=== PATIENT | male | born 1965 | race Caucasian/White ===

== ENCOUNTER 2024-08-28 18:24 | Observation (INO) ==
--- NOTE | 2024-08-28 18:55 | Emergency Department Note ---
Impression & Plan Right-sided chest pain, RUSS (dyspnea on exertion) ED Provider Note NAME: ADRIANNE MAYA AGE: 58 SEX: M : 1965 ARRIVES VIA: Walk-In INFORMANT: [Patient] ED PROVIDER(S): [Toi Sellers MD] CHIEF COMPLAINT: Chest pain HISTORY OF PRESENT ILLNESS: The patient is a 58-year-old male who has had just over a month of right chest discomfort that wraps to his shoulder blade. The pain seems to be present more so when he is standing longer. Its better when he is sitting. He does think it may worsen a bit with exertion. He does feel some shortness of breath with exertion. There has been no sweating or nausea. No cough or congestion. The pain is not pleuritic. The patient did have an outpatient chest x-ray which was essentially unrevealing. This was done through his doctors office. He also had an outpatient ultrasound of his right upper quadrant which by report was unremarkable. The patient does not smoke, he does have a family history of heart disease. He has never had a stress test. PMHx/PSHx/Social Hx: See Below PHYSICAL EXAM: GENERAL: Patient is in no acute distress. HEENT: No acute trauma, normocephalic atraumatic, mucous membranes moist, no nasal congestion. NECK: No stridor, no adenopathy, no meningismus, trachea is midline. LUNGS: Clear to auscultation bilaterally, no wheeze, no rhonchi, breath sounds equal. Chest: Nontender chest wall. HEART: Without murmurs gallops or rubs, regular rate and rhythm. ABDOMEN: Soft, nontender, no peritonitis. EXTREMITIES: No cyanosis, full range of motion of all the joints without pain or difficulty. NEUROLOGIC: Oriented x 3, no acute motor or sensory deficits, no focal weakness. SKIN: No jaundice, no diaphoresis. DIFFERENTIAL DIAGNOSIS: Musculoskeletal pain, pneumothorax, malignancy, OK, angina, PE, among others. EMERGENCY DEPARTMENT PROCEDURES: MEDICAL DECISION MAKING: There is no leukocytosis or concerning anemia. There is a normal platelet count. No coagulopathy. No renal failure or significant electrolyte abnormality. No concerning liver enzyme elevation. No evidence for pancreatitis. ECG shows a normal sinus rhythm, no ischemia. Cardiac enzyme testing x 1 is not consistent with acute cardiac injury. Chest x-ray does not show mediastinal widening, pneumonia or pneumothorax. Chest CT does not show PE, there is no mass or lung pathology by CT imaging. On exam, the patient was not having chest pain, I could not reproduce his chest pain with palpation. The patient was given oral aspirin for cardioprotective purposes. The patient presents with chest discomfort that has been ongoing for a month. It is right sided. He does describe some exertional component to the pain. He does have some dyspnea on exertion. I spoke with cardiology. The patient is going to be hospitalized for troponin trending and hopefully a stress test in the morning. The patient was happy with the testing done so far, he is agreeable to hospitalization. I spoke with case management, the on-call hospitalist was consulted. Prior/Outside records/notes reviewed: None ECG per my interpretation: Indication was chest pain. The ECG shows a normal sinus rhythm with a rate of 64. There is no acute ST elevation, there are no PVCs. The QTc is 425. Continuous Cardiac Monitoring per my interpretation: An order was placed for continuous cardiac monitoring. The monitor shows a rate of 70 with normal sinus rhythm. Imaging/x-ray results per my interpretation: Chest x-ray does not show mediastinal widening, pneumonia or pneumothorax. Chronic Medical/Social conditions affecting care: None Care/Management discussed with: Cardiology-Dr. Townsend. Case management and the on-call hospitalist. Level of care consideration(s): After review of the information above and other included data: --I believe the patient requires escalation of care to admission DISPOSITION: Admission Past Med/Surg History Problem List (Updated 08/29/24 @ 00:20 by Toi Sellers MD) RUSS (dyspnea on exertion) (Acute) Right-sided chest pain (Acute) Benign localized prostatic hyperplasia with lower urinary tract symptoms (LUTS) Spermatocele Erectile dysfunction Kidney stones High cholesterol Hypertension Medical History (Updated 08/29/24 @ 00:20 by Toi Sellers MD) Right shoulder injury Right knee meniscal tear Family History Father Diabetes Hypertension Kidney stones Mother Diabetes Hypertension Heart disease Grandmother (Paternal) Cancer Grandfather (Maternal) Heart disease Grandmother (Maternal) Heart disease Aunt No problems noted. 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 Feels Safe at Home: Yes Allergies Allergies Allergy/AdvReac Type Severity Reaction Status Date / Time No Known Allergies Allergy Verified 09/21/23 09:31 Home Meds Home Medications Medication Instructions Recorded Confirmed aspirin 81 mg tablet,delayed 81 mg PO DAILY 06/25/20 09/21/23 release (Adult Low Dose Aspirin) atorvastatin 10 mg tablet 10 mg PO DAILY 06/25/20 09/21/23 carvedilol 12.5 mg tablet 12.5 mg PO BID 06/25/20 09/21/23 cholecalciferol (vitamin D3) 50 50 mcg PO DAILY 06/25/20 09/21/23 mcg (2,000 unit) capsule hydrochlorothiazide 25 mg tablet 25 mg PO Q OTHER DAY 06/25/20 09/21/23 losartan 100 mg tablet 100 mg PO DAILY 06/25/20 09/21/23 multivitamin 1 tab PO DAILY 06/25/20 09/21/23 Results & Data (ED) Vital Signs Vital Signs - 24 hr 08/28/24 18:28 08/28/24 18:39 08/28/24 18:40 Temperature 36.7 C Temperature Source Temporal Artery Scan Pulse Rate 71 69 Pulse Rate [Right Finger] 68 Pulse Rhythm Regular Pulse Rhythm [Right Finger] Regular Pulse Strength Normal Pulse Strength [Right Finger] Normal Respiratory Rate 18 16 Respiratory Effort / Characteristics Non-Labored Spontaneous Non-Labored Respiratory Depth Normal Normal Respiratory Pattern Regular Blood Pressure 170/93 H Blood Pressure [Right Arm] 159/105 H Blood Pressure Mean 118 Blood Pressure Mean [Right Arm] 123 Blood Pressure Position Sitting Blood Pressure Position [Right Arm] Lying Pulse Oximetry 98 100 Oxygen Delivery Method Room Air Room Air Sepsis Recent Fever Within 48 Hours No Sepsis New/Unexplained Change in Mental Status No Sepsis Action Taken by Nursing No Action Required 08/28/24 18:40 08/28/24 19:25 08/28/24 21:29 Temperature Temperature Source Pulse Rate 70 Pulse Rate [Right Finger] 68 64 Pulse Rhythm Regular Pulse Rhythm [Right Finger] Regular Regular Pulse Strength Pulse Strength [Right Finger] Normal Normal Respiratory Rate 15 16 20 Respiratory Effort / Characteristics Non-Labored Non-Labored Respiratory Depth Normal Normal Respiratory Pattern Regular Regular Blood Pressure Blood Pressure [Right Arm] 132/79 154/87 H Blood Pressure Mean Blood Pressure Mean [Right Arm] 96 109 Blood Pressure Position Blood Pressure Position [Right Arm] Lying Lying Pulse Oximetry 100 97 15 L Oxygen Delivery Method Room Air Room Air Room Air Sepsis Recent Fever Within 48 Hours Sepsis New/Unexplained Change in Mental Status Sepsis Action Taken by Nursing 08/28/24 22:33 Temperature Temperature Source Pulse Rate 65 Pulse Rate [Right Finger] Pulse Rhythm Pulse Rhythm [Right Finger] Pulse Strength Pulse Strength [Right Finger] Respiratory Rate Respiratory Effort / Characteristics Respiratory Depth Respiratory Pattern Blood Pressure Blood Pressure [Right Arm] Blood Pressure Mean Blood Pressure Mean [Right Arm] Blood Pressure Position Blood Pressure Position [Right Arm] Pulse Oximetry Oxygen Delivery Method Sepsis Recent Fever Within 48 Hours Sepsis New/Unexplained Change in Mental Status Sepsis Action Taken by Group Home Medications Current Medication List: was personally reviewed by me Laboratory Data Attestation: I reviewed the patient's lab results. 08/28/24 18:45 08/28/24 18:45 Lab Results 08/28/24 Range/Units 18:45 WBC 6.41 (4.8-10.8) K/ul RBC 4.84 (4.70-6.10) M/uL Hgb 14.0 (14.0-18.0) g/dl Hct 39.7 L (42.0-52.0) % MCV 82.0 (80.0-100.0) fL MCH 28.9 (25.0-34.0) pg MCHC 35.3 (32.0-36.0) g/dL RDW Std Deviation 37.2 (36.4-46.3) fL RDW Coeff of Romulo 12.4 (11.5-14.5) % Plt Count 324 (130-400) K/uL MPV 9.1 L (9.4-12.4) fL Immature Gran % (Auto) 0.5 % Neut % (Auto) 52.5 % Lymph % (Auto) 29.8 % Ogle % (Auto) 13.9 % Eos % (Auto) 2.2 % Baso % (Auto) 1.1 % Neut # (Auto) 3.37 (1.40-6.50) K/uL Lymph # (Auto) 1.91 (1.20-3.40) K/uL [place]gle # (Auto) 0.89 H (0.11-0.59) K/uL Eos # (Auto) 0.14 (0.00-0.50) K/uL Baso # (Auto) 0.07 (0.00-0.20) K/uL Immature Gran # (Auto) 0.03 (0.01-0.20) K/uL PT 11.1 (9.0-12.0) Seconds INR 1.0 (0.9-1.1) APTT 29 (21-31) Seconds PTT Ratio 1.1 Sodium 137 (136-145) mmol/L Potassium 4.0 (3.5-5.1) mmol/L Chloride 100 (98-107) mmol/L Carbon Dioxide 30 (21-32) mmol/L Anion Gap 7 (3-11) BUN 11 (6-23) mg/dl Creatinine 0.77 (0.6-1.4) mg/dl Est Cr Clr Drug Dosing 129.6 ml/min Est GFR ( Amer) 115.1 ml/min Est GFR (Non-Af Amer) 99.3 ml/min BUN/Creatinine Ratio 14.3 (10-20) Glucose 94 (70-99(Fasting)) mg/dl Calcium 9.7 (8.6-10.3) mg/dl Magnesium 2.1 (1.7-2.4) mg/dl Total Bilirubin 0.6 (0.2-1.0) mg/dl AST 25 (13-39) U/L ALT 23 (7-52) U/L Alkaline Phosphatase 79 (34-104) U/L Troponin I High Sens 3.0 (0-20) pg/ml Total Protein 7.7 (6.0-8.3) gm/dl Albumin 4.7 (3.4-5.0) gm/dl Globulin 3.0 (2.5-4.0) gm/dl Albumin/Globulin Ratio 1.6 (0.9-2) Lipase 28 (11-82) U/L Administered Medications Discontinued Medications Aspirin (Aspirin Chew 324 Mg) 324 mg PO NOW STA Stop: 08/28/24 22:29 Last Admin: 08/28/24 22:43 Dose: 324 mg Documented By: Ioversol (Optiray 320 125ml) 116 ml IV ONCE ONE Stop: 08/28/24 20:01 Last Admin: 08/28/24 20:01 Dose: 116 ml Documented By: LUISITO Imaging Data Radiologist's Impression: Chest CTA 08/28/24 18:35 Exam(s): CTA CHEST EXAM: CT Angiography Chest With Intravenous Contrast CLINICAL HISTORY: Reason for exam: PE. TECHNIQUE: Axial computed tomographic angiography images of the chest with intravenous contrast. CTDI is 29 mGy and DLP is 805.34 mGy-cm. Automated exposure control was utilized for the study. A dose lowering technique was utilized adhering to the principles of ALARA. MIP reconstructed images were created and reviewed. COMPARISON: No relevant prior studies available. FINDINGS: Pulmonary arteries: Unremarkable. No pulmonary embolism. Aorta: No acute findings. Normal caliber. No dissection. Lungs: Unremarkable. Pleural space: Unremarkable. Heart: Unremarkable. Bones/joints: No acute fracture. Soft tissues: Unremarkable. Lymph nodes: Unremarkable. IMPRESSION: Normal chest CTA. No pulmonary embolism. Electronically signed by: Tuan Davis MD 08/28/24 21:14 PM Chest X-Ray 08/28/24 18:35 XR chest 1V portable CLINICAL HISTORY: Chest pain, nonspecific TECHNIQUE: Single frontal radiograph of the chest was obtained. Comparison: Comparison is made to chest radiograph 08/03/2024 FINDINGS: No lines and tubes are seen. The cardiomediastinal silhouette is normal. The lungs are clear. No evidence of pleural effusion or pneumothorax. IMPRESSION: No acute chest disease. ACT 112: Negative or not required by law. Electronically signed by: Lloyd Dorado M.D. 08/28/2024 7:09 PM Discharge Plan Visit Data Chief Complaint: Chest Pain Stated Complaint: CHEST PAIN ON RT TO SHOULDER BLADE ED Provider: Toi Sellers Discharge Problem: Right-sided chest pain, RUSS (dyspnea on exertion) Patient Disposition: Admitted As Inpatient Condition: Good Forms Stand Alone Forms: [employer] Prescriptions Prescriptions: No Action hydrochlorothiazide 25 mg tablet 25 mg PO Q OTHER DAY multivitamin Tablet 1 tab PO DAILY cholecalciferol (vitamin D3) 50 mcg (2,000 unit) capsule 50 mcg PO DAILY carvedilol 12.5 mg tablet 12.5 mg PO BID atorvastatin 10 mg tablet 10 mg PO DAILY losartan 100 mg tablet 100 mg PO DAILY aspirin [Adult Low Dose Aspirin] 81 mg tablet,delayed release (DR/EC) 81 mg PO DAILY Referrals Referrals: Rohini Calderon PA-C [Primary Care Provider] -
[2024-08-28 19:03] LABS: Basophils # (auto) 0.07 K/uL (0.00-0.20); Basophils % (auto) 1.1 %; Eosinophils # (auto) 0.14 K/uL (0.00-0.50); Eosinophils % (auto) 2.2 %; Hematocrit (blood only) 39.7 % (42.0-52.0); Immature Granulocytes # (auto) 0.03 K/uL (0.01-0.20); Immature Granulocytes % (auto) 0.5 %; Lymphocytes # (auto) 1.91 K/uL (1.20-3.40); Lymphocytes % (auto) 29.8 %; Mean Corpuscular Hemoglobin 28.9 pg (25.0-34.0); Mean Corpuscular Hgb Conc 35.3 g/dL (32.0-36.0); Mean Platelet Volume 9.1 fL (9.4-12.4); Monocytes # (auto) 0.89 K/uL (0.11-0.59); Monocytes % (auto) 13.9 %; Neutrophils # (auto) 3.37 K/uL (1.40-6.50); Neutrophils % (auto) 52.5 %; Platelet Count 324 K/uL (130-400); RDW Coefficient of Variation 12.4 % (11.5-14.5); RDW Standard Deviation 37.2 fL (36.4-46.3); Red Blood Count 4.84 M/uL (4.70-6.10); White Blood Count 6.41 K/ul (4.8-10.8)
--- NOTE | 2024-08-28 19:11 | XRay Report ---
XR chest 1V portable CLINICAL HISTORY: Chest pain, nonspecific TECHNIQUE: Single frontal radiograph of the chest was obtained. Comparison: Comparison is made to chest radiograph 08/03/2024 FINDINGS: No lines and tubes are seen. The cardiomediastinal silhouette is normal. The lungs are clear. No evid ence of pleural effusion or pneumothorax. IMPRESSION: No acute chest disease. ACT 112: Negative or not required by law. Electronically signed by: Lloyd Dorado M.D. 08/28/2024 7:09 PM
[2024-08-28 19:20] LABS: Albumin Globulin Ratio 1.6 (0.9-2); Albumin Level 4.7 gm/dl (3.4-5.0); BUN Creatinine Ratio 14.3 (10-20); Bilirubin,Total 0.6 mg/dl (0.2-1.0); Calcium 9.7 mg/dl (8.6-10.3); Creatinine Clr Calc Pharmacy 129.6 ml/min; Est GFR (African American) 115.1 ml/min; Est GFR (Non-African American) 99.3 ml/min; Magnesium 2.1 mg/dl (1.7-2.4); Total Protein 7.7 gm/dl (6.0-8.3)
[2024-08-28 19:33] LABS: Partial Thromboplastin Ratio 1.1; Partial Thromboplastin Time 29 Seconds (21-31); Prothrombin Time 11.1 Seconds (9.0-12.0)
[2024-08-28] MEDS: OPTIRAY 320 125ml IV ONE (20:01)
--- NOTE | 2024-08-28 21:14 | CT Scan Report ---
Exam(s): CTA CHEST EXAM: CT Angiography Chest With Intravenous Contrast CLINICAL HISTORY: Reason for exam: PE. TECHNIQUE: Axial computed tomographic angiography images of the chest with intravenous contrast. CTDI is 29 mGy and DLP is 805.34 mGy-cm. Automated exposure control was utilized for the study. A dose lowering technique was utilized adhering to the principles of ALARA. MIP reconstructed images were created and reviewed. COMPARISON: No relevant prior studies available. FINDINGS: Pulmonary arteries: Unremarkable. No pulmonary embolism. Aorta: No acute findings. Normal caliber. No dissection. Lungs: Unremarkable. Pleural space: Unremarkable. Heart: Unremarkable. Bones/joints: No acute fracture. Soft tissues: Unremarkable. Lymph nodes: Unremarkable. IMPRESSION: Normal chest CTA. No pulmonary embolism. Electronically signed by: Tuan Davis MD 08/28/24 21:14 PM
[2024-08-28] MEDS: ASPIRIN CHEW 324 MG PO STA (22:43)
--- NOTE | 2024-08-28 22:47 | History & Physical Report ---
Date of Service August 28, 2024 Assessment & Plan (1) RUSS (dyspnea on exertion): (2) Right-sided chest pain: (3) High cholesterol: (4) Hypertension: Hanna Talley is a 58M w/ PMH of BPH w/ LUTS, HLD, HTN, and nephrolithiasis who presents to the hospital for evaluation of exertional chest pain. Atypical Chest Pain - Patient presenting w/ 2 months of exertional right sided/pectoral chest pain w/ associated dyspnea * EKG w/ NSR, Troponin negative (continue to trend overnight), Vitals wnl w/o O2 requirement * CBC/CMP unremarkable * Nitroglycerin and Morphine PRN * Continued home Carvedilol 12.5 mg PO BID * Continued home Atorvastatin 10 mg PO daily * Aspirin 325 mg PO received in ED, continue 81 mg PO daily * No full anticoagulation at this time, SCDs and ambulation for DVT Ppx * Continue home antihypertensives HCTZ and Losartan * Cardiology: Recommending stress testing in AM * Stress Echocardiogram ordered * K > 4 /Mg > 2 * D/c NSAIDS * Monitor on telemetry overnight - Patient has seen multiple providers for evaluation of atypical CP of note: - RUQ Liver US negative for Liver or GB pathology 08/16 - CTA and CXR negative on presentation Chronic Conditions - HLD: Continue statin - HTN: Continue antihypertensives Diet: Heart Healthy DVT: Ambulation/SCDs IVF: None Dispo: Med/Tele History of Present Illness Chief Complaint: Exertional Chest Pain, Atypical Primary Care Provider: Rohini Kvng Talley is a 58M w/ PMH of BPH w/ LUTS, HLD, HTN, and nephrolithiasis who presents to the hospital for evaluation of exertional chest pain. ED Course: Aspirin 325 HPI: Patient notes that he has been experiencing undifferentiated chest pain since late June. He originally thought his symptoms were musculoskeletal and thus presented to his chiropractor who told him that his symptoms were related to his gallbladder. At this time, patient saw his PCP who ordered a RUQ ultrasound, which resulted as negative on 08/16. He was further told that his symptoms could be related to GERD/stomach ulcer, but this was not substantiated as patient is not experiencing any association with meals or position. Furthermore, he is not experiencing any epigastric pain, nausea or emesis. Patient's symptoms persist w/o explanation so him and his (at bedside) elected to present to the emergency department. 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 His symptoms occur with a mild dyspnea, but none severe enough to make him stop and catch his breath. Not experiencing diaphoresis. Patient denies lightheadedness, dizziness, or headaches. He is not experiencing orthopnea, LE edema, or claudication. notes that he seems more fatigued than normal after work and spends most of his evenings resting in his lounge chair. Patient has had no recent medication changes. Allergies Allergy/AdvReac Type Severity Reaction Status Date / Time No Known Allergies Allergy Verified 09/21/23 09:31 Home Medications Medication Instructions Recorded Confirmed Type aspirin 81 mg tablet,delayed 81 mg PO DAILY 06/25/20 09/21/23 History release (Adult Low Dose Aspirin) atorvastatin 10 mg tablet 10 mg PO DAILY 06/25/20 09/21/23 History carvedilol 12.5 mg tablet 12.5 mg PO BID 06/25/20 09/21/23 History cholecalciferol (vitamin D3) 50 50 mcg PO DAILY 06/25/20 09/21/23 History mcg (2,000 unit) capsule hydrochlorothiazide 25 mg tablet 25 mg PO Q OTHER DAY 06/25/20 09/21/23 History losartan 100 mg tablet 100 mg PO DAILY 06/25/20 09/21/23 History multivitamin 1 tab PO DAILY 06/25/20 09/21/23 History Past Med/Surg History Problem List RUSS (dyspnea on exertion) (Acute) Right-sided chest pain (Acute) Benign localized prostatic hyperplasia with lower urinary tract symptoms (LUTS) Spermatocele Erectile dysfunction Kidney stones High cholesterol Hypertension Medical History Right shoulder injury Right knee meniscal tear Family History Father Diabetes Hypertension Kidney stones Mother Diabetes Hypertension Heart disease Grandmother (Paternal) Cancer Grandfather (Maternal) Heart disease Grandmother (Maternal) Heart disease Aunt No problems noted. 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 [employer] Feels Safe at Home: Yes Safety Concerns: Feels Safe At This Time Assistive Devices: Glasses Physical Exam Physical Exam: Gen: NAD, alert, interactive HEENT: Supple, no LAD, no thyromegaly, no JVD Resp:Non-labored, no wheezing/rhonchi/rales, CTAB CV:RRR, normal S1/S2, no M/R/G, mild right pectoral TTP Abd: Soft, non-distended, no TTP, normoactive bowels, no masses Extr: 2+ dp bilaterally, no edema Skin: No rashes lesions or erythema Results & Data Results & Data Vital Signs (Past 12 Hours) Vital Signs Temp Pulse Pulse Resp BP BP Pulse Ox 08/28/24 21:29 64 20 154/87 H 15 L 08/28/24 19:25 68 16 132/79 97 08/28/24 18:40 70 15 100 08/28/24 18:40 68 16 159/105 H 100 08/28/24 18:39 69 08/28/24 18:28 36.7 C 71 18 170/93 H 98 O2 Del Method 08/28/24 21:29 Room Air 08/28/24 19:25 Room Air 08/28/24 18:40 Room Air 08/28/24 18:40 Room Air 08/28/24 18:39 08/28/24 18:28 Room Air Laboratory Results Laboratory Results WBC 6.41 K/ul (4.8-10.8) 08/28/24 18:45 RBC 4.84 M/uL (4.70-6.10) 08/28/24 18:45 Hgb 14.0 g/dl (14.0-18.0) 08/28/24 18:45 Hct 39.7 % (42.0-52.0) L 08/28/24 18:45 MCV 82.0 fL (80.0-100.0) 08/28/24 18:45 MCH 28.9 pg (25.0-34.0) 08/28/24 18:45 MCHC 35.3 g/dL (32.0-36.0) 08/28/24 18:45 RDW Std Deviation 37.2 fL (36.4-46.3) 08/28/24 18:45 RDW Coeff of Romulo 12.4 % (11.5-14.5) 08/28/24 18:45 Plt Count 324 K/uL (130-400) 08/28/24 18:45 MPV 9.1 fL (9.4-12.4) L 08/28/24 18:45 Immature Gran % (Auto) 0.5 % 08/28/24 18:45 Neut % (Auto) 52.5 % 08/28/24 18:45 Lymph % (Auto) 29.8 % 08/28/24 18:45 [place] % (Auto) 13.9 % 08/28/24 18:45 Eos % (Auto) 2.2 % 08/28/24 18:45 Baso % (Auto) 1.1 % 08/28/24 18:45 Neut # (Auto) 3.37 K/uL (1.40-6.50) 08/28/24 18:45 Lymph # (Auto) 1.91 K/uL (1.20-3.40) 08/28/24 18:45 [place] # (Auto) 0.89 K/uL (0.11-0.59) H 08/28/24 18:45 Eos # (Auto) 0.14 K/uL (0.00-0.50) 08/28/24 18:45 Baso # (Auto) 0.07 K/uL (0.00-0.20) 08/28/24 18:45 Immature Gran # (Auto) 0.03 K/uL (0.01-0.20) 08/28/24 18:45 PT 11.1 Seconds (9.0-12.0) 08/28/24 18:45 INR 1.0 (0.9-1.1) 08/28/24 18:45 APTT 29 Seconds (21-31) 08/28/24 18:45 PTT Ratio 1.1 08/28/24 18:45 Sodium 137 mmol/L (136-145) 08/28/24 18:45 Potassium 4.0 mmol/L (3.5-5.1) 08/28/24 18:45 Chloride 100 mmol/L (98-107) 08/28/24 18:45 Carbon Dioxide 30 mmol/L (21-32) 08/28/24 18:45 Anion Gap 7 (3-11) 08/28/24 18:45 BUN 11 mg/dl (6-23) 08/28/24 18:45 Creatinine 0.77 mg/dl (0.6-1.4) 08/28/24 18:45 Est Cr Clr Drug Dosing 129.6 ml/min 08/28/24 18:45 Est GFR ( Amer) 115.1 ml/min 08/28/24 18:45 Est GFR (Non-Af Amer) 99.3 ml/min 08/28/24 18:45 BUN/Creatinine Ratio 14.3 (10-20) 08/28/24 18:45 Glucose 94 mg/dl (70-99(Fasting)) 08/28/24 18:45 Calcium 9.7 mg/dl (8.6-10.3) 08/28/24 18:45 Magnesium 2.1 mg/dl (1.7-2.4) 08/28/24 18:45 Total Bilirubin 0.6 mg/dl (0.2-1.0) 08/28/24 18:45 AST 25 U/L (13-39) 08/28/24 18:45 ALT 23 U/L (7-52) 08/28/24 18:45 Alkaline Phosphatase 79 U/L (34-104) 08/28/24 18:45 Troponin I High Sens 4.0 pg/ml (0-20) 08/29/24 00:04 Total Protein 7.7 gm/dl (6.0-8.3) 08/28/24 18:45 Albumin 4.7 gm/dl (3.4-5.0) 08/28/24 18:45 Globulin 3.0 gm/dl (2.5-4.0) 08/28/24 18:45 Albumin/Globulin Ratio 1.6 (0.9-2) 08/28/24 18:45 Lipase 28 U/L (11-82) 08/28/24 18:45 Impressions Chest CTA 08/28/24 18:35 Exam(s): CTA CHEST EXAM: CT Angiography Chest With Intravenous Contrast CLINICAL HISTORY: Reason for exam: PE. TECHNIQUE: Axial computed tomographic angiography images of the chest with intravenous contrast. CTDI is 29 mGy and DLP is 805.34 mGy-cm. Automated exposure control was utilized for the study. A dose lowering technique was utilized adhering to the principles of ALARA. MIP reconstructed images were created and reviewed. COMPARISON: No relevant prior studies available. FINDINGS: Pulmonary arteries: Unremarkable. No pulmonary embolism. Aorta: No acute findings. Normal caliber. No dissection. Lungs: Unremarkable. Pleural space: Unremarkable. Heart: Unremarkable. Bones/joints: No acute fracture. Soft tissues: Unremarkable. Lymph nodes: Unremarkable. IMPRESSION: Normal chest CTA. No pulmonary embolism. Electronically signed by: Tuan Davis MD 08/28/24 21:14 PM Chest X-Ray 08/28/24 18:35 XR chest 1V portable CLINICAL HISTORY: Chest pain, nonspecific TECHNIQUE: Single frontal radiograph of the chest was obtained. Comparison: Comparison is made to chest radiograph 08/03/2024 FINDINGS: No lines and tubes are seen. The cardiomediastinal silhouette is normal. The lungs are clear. No evidence of pleural effusion or pneumothorax. IMPRESSION: No acute chest disease. ACT 112: Negative or not required by law. Electronically signed by: Lloyd Dorado M.D. 08/28/2024 7:09 PM Supervising Physician Co-Signing Physician Notes Patient seen and examined in room 457-2, chart reviewed, case discussed with Dr. Mckinney and I agree with the assessment and plan as above. In brief ,patient is a 58yo male presenting with left sided chest pain, exertional. Workup thus far unremarkable with negative troponin and EKG with no acute ischemic changes. Resting comfortably on my exam, no further chest pain +S1/S2, regular, no m/r/g Lungs CTA Abd soft, NT/ND Ext - warm, well perfused Labs and images reviewed Assessment/Plan - ?cardiac chest pain -Telemetry monitoring -Repeat troponin -Stress test today -Remainder as above Resident Activity Tracking Resident Involvement: Resident Care Provided Care Provided: Adult [facility] Medicine
[2024-08-29] MEDS ORDERED: POLYETHYLENE (MIRALAX) 17 GM PACK PO PRN (01:54)
[2024-08-29] MEDS ORDERED: ONDANSETRON INJ 2 MG/ML 2 ML VIAL IV PRN (01:54)
[2024-08-29] MEDS ORDERED: NITROGLYCERIN SL 0.4 MG/TAB TAB SL PRN (01:54)
[2024-08-29] MEDS ORDERED: ACETAMINOPHEN 325 MG TAB PO PRN (01:54)
[2024-08-29] MEDS ORDERED: MoRPHine SULFATE 2 MG/ML CARP IV PRN (01:54)
--- NOTE | 2024-08-29 01:54 | Billing Data ---
Date of Service August 28, 2024 Coding Level of Care Code 56951 INT INP/OBS CARE
[2024-08-29] MEDS: carvediloL 12.5 MG TAB PO SCH (02:39)
[2024-08-29] MEDS: ATORVASTATIN 10 MG TAB PO SCH (03:03)
[2024-08-29 03:56] VITALS: RESP 18
[2024-08-29 06:15] LABS: Hematocrit (blood only) 37.7 % (42.0-52.0); Hemoglobin 13.3 g/dl (14.0-18.0); Mean Corpuscular Hemoglobin 28.9 pg (25.0-34.0); Mean Corpuscular Hgb Conc 35.3 g/dL (32.0-36.0); Mean Corpuscular Volume 81.8 fL (80.0-100.0); Mean Platelet Volume 9.1 fL (9.4-12.4); Platelet Count 257 K/uL (130-400); RDW Coefficient of Variation 12.4 % (11.5-14.5); RDW Standard Deviation 36.8 fL (36.4-46.3); Red Blood Count 4.61 M/uL (4.70-6.10); White Blood Count 5.93 K/ul (4.8-10.8)
[2024-08-29 06:17] LABS: Albumin Globulin Ratio 1.6 (0.9-2); Albumin Level 4.2 gm/dl (3.4-5.0); BUN Creatinine Ratio 16.2 (10-20); Bilirubin,Total 0.9 mg/dl (0.2-1.0); Calcium 9.3 mg/dl (8.6-10.3); Creatinine Clr Calc Pharmacy 146.7 ml/min; Est GFR (African American) 121.2 ml/min; Est GFR (Non-African American) 104.5 ml/min; Globulin 2.6 gm/dl (2.5-4.0); Potassium 3.7 mmol/L (3.5-5.1); Total Protein 6.8 gm/dl (6.0-8.3)
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
[2024-08-29 11:33] VITALS: BP 111/74; TEMP 98.1; O2SAT 95
--- NOTE | 2024-08-29 11:51 | XCELERA ---
[id number]
--- NOTE | 2024-08-29 11:58 | Cardiology Consultation ---
Date of Consultation August 29, 2024 Assessment & Plan (1) Right-sided chest pain: Plan 1. Chest pain: Atypical for cardiac chest pain. The location, character and fact that it has been present for several weeks without any objective signs of ischemia would be unusual for cardiac pain. Exercise echocardiography did not demonstrate inducible ischemia and the remainder of the echocardiogram was unremarkable. No evidence of cardiac disease. History of Present Illness Reason for Consultation: Chest pain Requesting Physician: Hank Attending Physician: Paramjit Galaviz MD History of Present Illness The patient is a 58-year-old gentleman without a known history of cardiac disease who presented to the emergency room with symptoms of chest pain. It seems the patient has been struggling with some chest pain symptoms for several weeks. The pain itself tends to be in the right back and flank area. There are some radiation to the lateral right chest wall. The symptoms seem to be present at all times and can be present at rest. Not necessarily worsened by exertion. No pleuritic symptoms. The patient was worked up for a noncardiac etiology such as gallbladder disease. However, no specific etiology or relief has been found. As result he presented to the emergency room for an evaluation. Allergies Allergy/AdvReac Type Severity Reaction Status Date / Time No Known Allergies Allergy Verified 09/21/23 09:31 Home Medications Medication Instructions Recorded Confirmed Type aspirin 81 mg tablet,delayed 81 mg PO DAILY 06/25/20 08/29/24 History release (Adult Low Dose Aspirin) atorvastatin 10 mg tablet 10 mg PO DAILY 06/25/20 08/29/24 History carvedilol 12.5 mg tablet 12.5 mg PO BID 06/25/20 08/29/24 History cholecalciferol (vitamin D3) 50 50 mcg PO DAILY 06/25/20 08/29/24 History mcg (2,000 unit) capsule hydrochlorothiazide 25 mg tablet 25 mg PO DAILY 06/25/20 08/29/24 History losartan 100 mg tablet 100 mg PO DAILY 06/25/20 08/29/24 History multivitamin 1 tab PO DAILY 06/25/20 08/29/24 History omeprazole 40 mg capsule,delayed 40 mg PO DAILY 08/29/24 08/29/24 History release Patient History Medical History Right shoulder injury Right knee meniscal tear Family History Father Diabetes Hypertension Kidney stones Mother Diabetes Hypertension Heart disease Grandmother (Paternal) Cancer Grandfather (Maternal) Heart disease Grandmother (Maternal) Heart disease Aunt No problems noted. 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 Mood and affect appeared normal. He answered all questions appropriately. HEENT: Pupils are equal and reactive to light and accommodation. Extraocular movements are intact. The sclerae are anicteric. Neuro: Cranial nerves intact Lungs: Clear to auscultation bilaterally. He has good air movement without use of accessory muscles. No rales wheezes or rhonchi. Cardiac: Heart demonstrates a regular rate and rhythm. Normal S1 and S2. No murmurs on examination. Pulses: The patient has palpable radial pulses bilaterally that are equal in intensity Extremities: There was no evidence of hypoperfusion. There is no cyanosis or clubbing. There is no edema. Skin: I did not appreciate any rashes on examination today. Results & Data Vital Signs (Past 12 Hours) Vital Signs Temp Pulse Pulse Resp BP Pulse Ox Pulse Ox 08/29/24 11:32 36.7 C 71 18 111/74 95 08/29/24 08:00 36.5 C 59 L 18 136/79 99 08/29/24 07:00 56 L 08/29/24 03:56 36.4 C L 57 L 18 115/74 99 08/29/24 01:54 98 08/29/24 01:39 62 08/29/24 01:20 36.7 C 60 16 155/91 H 98 08/29/24 01:05 60 12 145/92 H 97 O2 Del Method O2 Del Method 08/29/24 11:32 Room Air 08/29/24 08:00 Room Air 08/29/24 07:00 08/29/24 03:56 Room Air 08/29/24 01:54 Room Air 08/29/24 01:39 08/29/24 01:20 Room Air 08/29/24 01:05 Room Air Laboratory Results Abnormal Lab Results 08/28/24 08/29/24 08/29/24 18:45 00:04 05:22 WBC 6.41 5.93 RBC 4.84 4.61 L Hgb 14.0 13.3 L Hct 39.7 L 37.7 L MCV 82.0 81.8 MCH 28.9 28.9 MCHC 35.3 35.3 RDW Std Deviation 37.2 36.8 RDW Coeff of Romulo 12.4 12.4 Plt Count 324 257 MPV 9.1 L 9.1 L Immature Gran % (Auto) 0.5 Neut % (Auto) 52.5 Lymph % (Auto) 29.8 [place] % (Auto) 13.9 Eos % (Auto) 2.2 Baso % (Auto) 1.1 Neut # (Auto) 3.37 Lymph # (Auto) 1.91 [place] # (Auto) 0.89 H Eos # (Auto) 0.14 Baso # (Auto) 0.07 Immature Gran # (Auto) 0.03 PT 11.1 INR 1.0 APTT 29 PTT Ratio 1.1 Sodium 137 138 Potassium 4.0 3.7 Chloride 100 102 Carbon Dioxide 30 29 Anion Gap 7 7 BUN 11 11 Creatinine 0.77 0.68 Est Cr Clr Drug Dosing 129.6 146.7 Est GFR ( Amer) 115.1 121.2 Est GFR (Non-Af Amer) 99.3 104.5 BUN/Creatinine Ratio 14.3 16.2 Glucose 94 98 Calcium 9.7 9.3 Magnesium 2.1 Total Bilirubin 0.6 0.9 AST 25 24 ALT 23 24 Alkaline Phosphatase 79 74 Troponin I High Sens 3.0 4.0 Total Protein 7.7 6.8 Albumin 4.7 4.2 Globulin 3.0 2.6 Albumin/Globulin Ratio 1.6 1.6 Lipase 28 Diagnostic Findings Exercise echocardiogram did not reveal any evidence of inducible ischemia. Base line echocardiogram demonstrated normal LV systolic function, stage I diastolic function. No significant valvular heart disease. Chest x-ray obtained the time admission not really acute cardiopulmonary disease. Chest CTA was also obtained which did not reveal any evidence of pulmonary embolus. ECG Additional Comments: EKG obtained at time admission revealed normal sinus rhythm. PG Care Time/CCT Total # of Minutes Spent Total Time Spent with Patient: Total time spent is greater than 50% in coordination of care (as documented) at patient's floor/unit and/or counseling patient: Coding Level of Care Code 30485 IN/OBS CONSULT LVL 4,60M Diagnoses Right-sided chest pain R07.9
[2024-08-29] MEDS: hydroCHLOROthiazide 25 MG TAB PO SCH (12:36)
[2024-08-29] MEDS: ASPIRIN 81 MG ECTAB PO SCH (12:36)
[2024-08-29] MEDS: LOSARTAN POTASSIUM 50 MG TAB PO SCH (12:36)
--- NOTE | 2024-08-29 14:09 | Discharge Summary ---
Date of Service August 29, 2024 Admission HPI Per Admitting Provider Mayank is a 58M w/ PMH of BPH w/ LUTS, HLD, HTN, and nephrolithiasis who presents to the hospital for evaluation of exertional chest pain. ED Course: Aspirin 325 HPI: Patient notes that he has been experiencing undifferentiated chest pain since late June. He originally thought his symptoms were musculoskeletal and thus presented to his chiropractor who told him that his symptoms were related to his gallbladder. At this time, patient saw his PCP who ordered a RUQ ultrasound, which resulted as negative on 08/16. He was further told that his symptoms could be related to GERD/stomach ulcer, but this was not substantiated as patient is not experiencing any association with meals or position. Furthermore, he is not experiencing any epigastric pain, nausea or emesis. Patient's symptoms persist w/o explanation so him and his (at bedside) elected to present to the emergency department. 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 His symptoms occur with a mild dyspnea, but none severe enough to make him stop and catch his breath. Not experiencing diaphoresis. Patient denies lightheadedness, dizziness, or headaches. He is not experiencing orthopnea, LE edema, or claudication. notes that he seems more fatigued than normal after work and spends most of his evenings resting in his lounge chair. Patient has had no recent medication changes. Admission Exam Per Admitting Provider Gen: NAD, alert, interactive HEENT: Supple, no LAD, no thyromegaly, no JVD Resp:Non-labored, no wheezing/rhonchi/rales, CTAB CV:RRR, normal S1/S2, no M/R/G, mild right pectoral TTP Abd: Soft, non-distended, no TTP, normoactive bowels, no masses Extr: 2+ dp bilaterally, no edema Skin: No rashes lesions or erythema Principal Diagnosis Right-sided chest pain Discharge Exam Gen: NAD, AOx3 HEENT: NCAT, PERRL CV: RRR, no m/r/g, S1/S2 normal Resp: CTAB, symmetrical chest rise, breathing non-labored Abd: Soft, NT/ND, +BS, no HSM MSK: Full ROM, no gross deformities, no ttp Skin: Warm, dry, pink, no rashes or lesions Psych: Mood-affect congruent. Speech pace and content normal. Discharge Data Allergies Allergy/AdvReac Type Severity Reaction Status Date / Time No Known Allergies Allergy Verified 09/21/23 09:31 Consultations 08/28/24 22:43 ED Decision to Admit Stat 08/29/24 01:54 Consult Cardiology Routine Ordered Studies 08/29/24 05:22 08/29/24 05:22 08/28/24 18:35 CT angio chest PE protocol Stat Hospital Course (1) RUSS (dyspnea on exertion): (2) Right-sided chest pain: (3) High cholesterol: (4) Hypertension: Hanna Talley is a 58M w/ PMH of BPH w/ LUTS, HLD, HTN, and nephrolithiasis who presented to the hospital for evaluation of exertional chest pain and dyspnea. Atypical Chest Pain - Sx began in June, with pain in the right chest radiating to the shoulder - Pt reports it is usually more of a dull ache or pressure than a pain, worsened w movement and relieved w rest - adds that he seems to tire more easily and has some SOB with exertion - Initial provider thought gallbladder issue d/t location of sx; RUQ US 08/16 negative - PCP thought possible stomach ulcer; pt has no corresponding epigastric pain, n/v, or sx a/w meals - Sx improved in ED w aspirin 325 mg PO, 0.4mg SL nitrostat & 2mg IV morphine PRN - Vitals wnl w no O2 requirement, trop wnl, CTA and CXR negative, EKG and stress echo normal - Suspect MSK etiology as GI, pulm, and cardiac ruled out - After discharge, recc aspirin 81 mg PO daily; apap 1000 mg or ibuprofen 600mg, q8h for 24-48 hours, then q8h as needed for pain Chronic Conditions - HTN: Continued home Carvedilol 12.5 mg PO BID, HCTZ 25mg qd, and Losartan 100mg qd - HLD: Continued home Atorvastatin 10 mg PO daily Total Time Total Time Spent Total Time Spent (In Minutes): See attending documentation Discharge Plan Discharge Items Patient Disposition: Home - Self-Care Reason For Visit: CHEST PAIN EVALUATION Discharge Diagnosis: Chest wall pain/atypical chest pain Condition on Discharge: Good Activity: Per Instructions section Non-emergency contact: Primary Care Provider Call non-emergency contact if: you have any medication questions, your symptoms worsen and your pain is not controlled Follow-up/Referrals: Rohini Calderon PA-C [Primary Care Provider] - Diet: Regular Addtl Attending Provider Instructions: Dear Mayank, You came to the hospital with your last night with a complaint of persistent chest pain. You were evaluated in our emergency department with blood tests and imaging to ensure that you were not having an acute coronary or pulmonary event. The blood tests showed no evidence of heart stress concerning for an acute coronary event, and the CT of your chest was negative for a pulmonary embolism. The rest of your labs were also normal, and you were admitted to the hospital for further evaluation. After you were admitted, we consulted the cardiology service they evaluated you further with a stress echocardiogram today and fortunately, they believe that your chest pain was noncardiac in origin. As a result, we believe that you can now be safely discharged home. Please pay attention to the following instructions. If you have any questions, please clarify them with your nurse before you are discharged. 1. For ongoing chest pain, we recommend either of the following [id number] pain regimens: * Take Tylenol (acetaminophen) 1000 mg every 8 hours [id number] for 24-48 hours, then every 8 hours as needed for pain afterwards. OR * Take ibuprofen 600 mg every 8 hours [id number] for the first 24-48 hours, then every 8 hours as needed for pain afterwards. If your chest pain is not controlled by either regimen, you may take both acetaminophen and ibuprofen by staggering the doses so that you are alternating between each medication every 4 hours. 2. We made no changes to your existing home medications. You may continue to take them as previously directed, unless otherwise instructed to by your primary care provider (PCP). 3. A hospital follow-up visit with your PCP, Marta Calderon PA-C will be scheduled by our hospital carton making machinist. If you have not heard from her office in 2-3 business days about an appointment, you may contact her clinic at [phone]. It is important that you attend this hospital follow-up visit, so that your PCP is updated about your recent hospital stay, and can remain apprised of your ongoing medical health needs. It has been our pleasure to care for you here [facility]. If you have any questions or concerns about your care, you may contact the hospital at [phone]. Pending Studies at Discharge: No Stand-Alone Forms: [facility], Smoking Cessation Medications and DC Order Prescriptions: Continued hydrochlorothiazide 25 mg tablet 25 mg PO DAILY multivitamin Tablet 1 tab PO DAILY Rx Instructions: Unable to verify OTC meds at this date/time. cholecalciferol (vitamin D3) 50 mcg (2,000 unit) capsule 50 mcg PO DAILY Rx Instructions: Unable to verify OTC meds at this date/time. carvedilol 12.5 mg tablet 12.5 mg PO BID atorvastatin 10 mg tablet 10 mg PO DAILY losartan 100 mg tablet 100 mg PO DAILY aspirin [Adult Low Dose Aspirin] 81 mg tablet,delayed release (DR/EC) 81 mg PO DAILY Rx Instructions: Unable to verify OTC meds at this date/time. omeprazole 40 mg Capsule,Delayed Release(Dr/Ec) 40 mg PO DAILY Discharge Orders: Discharge Order (Routine); Ordered 08/29/24 Ordered By: Mathieu Cole Admission Data Admit Date/Time: 08/28/24 23:31 Attending Provider: Paramjit Galaviz Admit Provider: Dimitri Mckinney Primary Care Provider: Rohini Calderon Other Providers: Terri Whitaker; Darius Hughes; Zach Meade; Fred Amaro; Elijah Guerra; Jaylon Mora; Og Ghosh Jr; Elliott Townsend; Robyn Tuttle; Anastacia Wills; Paramjit Sher; Paramjit Mayen; Vignesh Penny; Corin Matthew; Carlitos Romeo; Michelle Ordonez; Neil Atwood; Eric Butler; Chaz Francis Other Interventions: Discharge Summary Assessment (RN) Last Done: 08/29/24 15:18 Supervising Physician Co-Signing Physician Notes Attending attestation Pt seen and examined in concert with Dr. Puckett. In agreement with the documented findings as noted in the resident documentation with any exceptions or additions as noted here. Resting comfortably in bed with right chest pain mildly. On examination, S1/S2 nl RRR no MCG. CTAB. Abd NT/ND BS+ve. Reproducible with palpation of right intercostal pressure without adduction/abduction and rotation at shoulder. Chest pain, atypical - likely MSK with negative stress testing. APAP/NSAID for short term pain control and follow up with PCP. Else see resident documentation as noted. Total attending physician time spent with this patient's care on the day of discharge: 40 minutes. Resident Activity Tracking Resident Involvement: Resident Care Provided Care Provided: Adult Hospital Medicine
--- NOTE | 2024-08-29 15:02 | Electrocardiogram Report ---
Test Reason : Blood Pressure : */* mmHG Vent. Rate : 64 BPM Atrial Rate : 64 BPM P-R Int : 190 ms QRS Dur : 96 ms QT Int : 412 ms P-R-T Axes : 39 6 10 degrees QTcB Int : 425 ms Normal sinus rhythm Normal ECG No previous ECGs available Confirmed by Paramjit Mayen ([id number]) on 08/29/2024 3:02:25 PM Referred By: Confirmed By: Paramjit Mayen
[2024-08-29 15:20] VITALS: PULSE 71
== END 2024-08-29 16:00 | disposition home or self-care (01) | DRG 313 ==
LOC: ED 18:24 → INTOOBSV 23:31 → 4W 23:31 → SUATTDRO 23:31 → 4W 08-29 01:14